=== PATIENT | male | born 1960 | race Two or more races ===

== ENCOUNTER 2023-09-03 12:08 | Emergency (ER) | payer OTHER ==
[~2023-09-03] VITALS: Ht 185.4 cm; Wt 119.7 kg
[2023-09-03 14:08] LABS: HEMATOCRIT 46.2 % (39.0-48.0); HEMOGLOBIN 15.6 g/dL (13-16.00); MEAN CELL VOLUME 87.5 fL (80.0-100.00); MEAN CORPUSCULAR HEMOGLOBIN 29.4 pg (27.00-32.0); MEAN CORPUSCULAR HGB CONC 33.6 g/dl (32.0-36.0); PLATELET COUNT 204 K/uL (150-450); RED BLOOD COUNT 5.28 M/uL (4.00-6.00); RED CELL DISTRIBUTION WIDTH 15.1 % (11.5-14.5)
[2023-09-03 14:25] LABS: ABG PH 7.394 (7.35-7.45); ABG PO2 89.2 mmHg (80-100); ABG pCO2 37.6 mmHg (35-45); BICARBONATE 22.4 mmol/l (23-25); SaO2 96.7 %; Tco2 23.6 mmol/l
[2023-09-03 14:26] LABS: allen test SATISFACTORY; o2 21 %; puncture site RADIAL RIGHT
[2023-09-03 14:54] LABS: ALBUMIN 3.8 gm/dL (3.4-5.0); BILIRUBIN TOTAL 3.85 mg/dL (0.3-1.2); CALCIUM 9.5 mg/dL (8.5-10.1); CREATININE SERUM 1.17 mg/dL (0.70-1.30); GFR 62.76; GLOBULINA 3.3 G/DL (2.4-3.5); POTASSIUM 3.94 mEq/L (3.5-5.1); TOTAL PROTEIN 7.1 gm/dL (6.4-8.2)
[2023-09-03] MEDS ORDERED: KETOROLAC TROMETHAMINE 15 MG VIAL IV ONE (15:15)
[2023-09-03] MEDS ORDERED: HYOSCYAMINE SULFATE 0.125 MG TAB.SUBL SL ONE (15:15)
== END 2023-09-03 22:22 | disposition home or self-care (01) ==
LOC: ER 12:09
PROVIDERS: General Practice
DX: K80.20 Calculus of gallbladder without cholecystitis without obstruction (principal); R10.11 Right upper quadrant pain; Z20.822 Contact with and (suspected) exposure to COVID-19

== ENCOUNTER 2023-09-08 10:26 | Inpatient (IN) | payer OTHER ==
[~2023-09-08] VITALS: Ht 185.4 cm; Wt 118.8 kg
--- NOTE | 2023-09-08 10:31 | NUR ---
PACIENTE ALERTA Y ORIENTADO X 3. REFIERE DOLOR EN COSTADO DERECHO DESDE VICTORIA. INDICA EL SABADO SE ATENDIO LE REALIZARON SONO Y LE INDICARON TENER PIEDRAS.
[2023-09-08] MEDS ORDERED: FAMOTIDINE/PF 20 MG in 0.9 % SODIUM CHLORIDE 8 ML IV PUSH STA (10:39)
[2023-09-08] MEDS ORDERED: FAMOtidine 200mg/20ml VIAL ONE (10:43)
--- NOTE | 2023-09-08 10:45 | NUR ---
GARIMA EUBANKS ORIENTA PTE SOBRE TX, REFIERE ENTENDER Y ACEPTAR. LE RK MUESTRAS DE LABORATORIO Y LE ADMINISTRA MEDICAMENTO MAILE ORDEN MEDICA Y BAJO MEDIDAS ASEPTICAS.
[2023-09-08 11:29] LABS: HEMATOCRIT 42.1 % (39.0-48.0); HEMOGLOBIN 14.7 g/dL (13-16.00); MEAN CELL VOLUME 87.6 fL (80.0-100.00); MEAN CORPUSCULAR HEMOGLOBIN 30.5 pg (27.00-32.0); MEAN CORPUSCULAR HGB CONC 34.9 g/dl (32.0-36.0); PLATELET COUNT 211 K/uL (150-450); RED BLOOD COUNT 4.81 M/uL (4.00-6.00); RED CELL DISTRIBUTION WIDTH 14.9 % (11.5-14.5)
[2023-09-08 11:31] LABS: AMYLASE 1211 U/L (25-115); LIPASE 2897 U/L (13-75)
[2023-09-08] MEDS ORDERED: 0.9 % SODIUM CHLORIDE 1,000 ML IV SCH ×2 (12:11→18:30)
[2023-09-08] MEDS ORDERED: PIPERACILLIN/TAZOBACTAM SODIUM 3.375 GM VIAL IV ONE ×3 (12:15→22:15)
[2023-09-08] MEDS ORDERED: ACETAMINOPHEN 500 MG GEL..CAP PO PRN ×2 (18:15→21:15)
[2023-09-08 20:42] LABS: INR 1.14; PROTHROMBIN TIME 11.9 SECONDS (9.0-11.5)
[2023-09-08 20:46] LABS: C-REACTIVE PROTEIN 2.98 MG/DL (0.00-0.29); MAGNESIUM 2.4 mg/dL (1.8-2.4)
[2023-09-08 20:48] LABS: ALBUMIN 3.7 gm/dL (3.4-5.0); BILIRUBIN TOTAL 2.87 mg/dL (0.3-1.2); BILIRUBIN,CONJUGATED 1.96 mg/dL (0.0-0.2); BILIRUBIN,UNCONJUGATED 0.91 mg/dL (0.0-0.6); CALCIUM 9.6 mg/dL (8.5-10.1); CREATININE SERUM 1.16 mg/dL (0.70-1.30); GFR 63.38; POTASSIUM 3.72 mEq/L (3.5-5.1); TOTAL PROTEIN 7.7 gm/dL (6.4-8.2)
[2023-09-08] MEDS ORDERED: ONDANSETRON HCL 4 MG in 0.9 % SODIUM CHLORIDE 50 ML IV PRN (21:15)
[2023-09-08 22:01] LABS: URINE APPEARANCE Clear; URINE BILIRRUBIN Moderate (NEGATIVE); URINE BLOOD Negative; URINE COLOR Dark Yellow; URINE GLUCOSE Negative (NEGATIVE); URINE LEUKOCYTE Negative; URINE NITRATE Negative; URINE PROTEIN Trace (NEGATIVE)
[2023-09-08 22:05] LABS: URINE RBC 5.1 uL (0.0-20.8); URINE WBC 2.7 uL (0.0-23.2)
[2023-09-08 22:11] LABS: URINE BACTERIA 0 uL (0.0-1933); URINE EPITHELIAL CELLS 1.3 uL (0.0-38.8)
[2023-09-08] MEDS ORDERED: ENALAPRIL MALEATE 2.5 MG TABLET PO STA (23:13)
[2023-09-08] MEDS ORDERED: ENALAPRILAT DIHYDRATE 1.25 MG/ML VIAL IV ONE (23:16)
[2023-09-08] MEDS ORDERED: ENALAPRILAT DIHYDRATE 2.5 MG/2 ML VIAL IV STA (23:21)
[2023-09-09] MEDS ORDERED: PIPERACILLIN/TAZOBACTAM SODIUM 3.375 GM in 0.9 % SODIUM CHLORIDE 100 ML IV SCH
[2023-09-09] MEDS ORDERED: FAMOTIDINE/PF 20 MG in 0.9 % SODIUM CHLORIDE 8 ML IV PUSH SCH (09:00)
[2023-09-09] MEDS ORDERED: ENOXAPARIN SODIUM 40 MG/0.4 ML SYRINGE SUBCUTANEO SCH (09:00)
[2023-09-10 08:34] LABS: ALBUMIN 3.1 gm/dL (3.4-5.0); BILIRUBIN TOTAL 0.99 mg/dL (0.3-1.2); CALCIUM 8.8 mg/dL (8.5-10.1); CREATININE SERUM 0.91 mg/dL (0.70-1.30); GFR 83.88; POTASSIUM 3.77 mEq/L (3.5-5.1); TOTAL PROTEIN 6.1 gm/dL (6.4-8.2)
[2023-09-11] MEDS ORDERED: FAMOTIDINE/PF 20 MG/2 ML VIAL ONE (08:35)
[2023-09-12 06:57] LABS: ALBUMIN 3.1 gm/dL (3.4-5.0); BILIRUBIN TOTAL 0.78 mg/dL (0.3-1.2); CALCIUM 8.8 mg/dL (8.5-10.1); CREATININE SERUM 0.94 mg/dL (0.70-1.30); GFR 80.79; GLOBULINA 2.9 G/DL (2.4-3.5); POTASSIUM 3.69 mEq/L (3.5-5.1)
[2023-09-12] MEDS ORDERED: FAMOTIDINE/PF 20 MG/2 ML VIAL ONE ×2 (08:52→19:47)
[2023-09-12] MEDS ORDERED: FAMOTIDINE/PF 20 MG in 0.9 % SODIUM CHLORIDE 8 ML IV PUSH SCH (21:00)
[2023-09-13] MEDS ORDERED: FAMOTIDINE/PF 20 MG/2 ML VIAL ONE ×3 (08:05→22:05)
[2023-09-13 08:49] LABS: HEMATOCRIT 39.1 % (39.0-48.0); HEMOGLOBIN 13.4 g/dL (13-16.00); MEAN CELL VOLUME 87.1 fL (80.0-100.00); MEAN CORPUSCULAR HEMOGLOBIN 29.8 pg (27.00-32.0); MEAN CORPUSCULAR HGB CONC 34.3 g/dl (32.0-36.0); PLATELET COUNT 213 K/uL (150-450); RED BLOOD COUNT 4.49 M/uL (4.00-6.00); RED CELL DISTRIBUTION WIDTH 14.3 % (11.5-14.5)
[2023-09-13] MEDS ORDERED: ENALAPRILAT DIHYDRATE 1.25 MG/ML VIAL IV PRN (16:15)
[2023-09-13] MEDS ORDERED: CEFAZOLIN SODIUM 1,000 MG VIAL ONE (19:44)
[2023-09-13] MEDS ORDERED: BUPIVACAINE HCL/MPF 0.5% 30ML VIAL ONE (19:44)
[2023-09-13] MEDS ORDERED: PIPERACILLIN/TAZOBACTAM SODIUM 3.375 GM VIAL IV SCH (20:03)
[2023-09-13] MEDS ORDERED: KETOROLAC TROMETHAMINE 30 MG VIAL IV PRN (20:15)
[2023-09-13] MEDS ORDERED: SUGAMMADEX SODIUM 200 MG/2 ML VIAL IV ONE (20:41)
[2023-09-13] MEDS ORDERED: PIPERACILLIN/TAZOBACTAM SODIUM 3.375 GM VIAL IV ONE (20:47)
[2023-09-13] MEDS ORDERED: ENALAPRILAT DIHYDRATE 1.25 MG/ML VIAL IV ONE (23:16)
[2023-09-14] MEDS ORDERED: PIPERACILLIN/TAZOBACTAM SODIUM 3.375 GM VIAL IV ONE (00:16)
[2023-09-14 09:10] LABS: HEMATOCRIT 38.7 % (39.0-48.0); HEMOGLOBIN 13.2 g/dL (13-16.00); MEAN CELL VOLUME 86.5 fL (80.0-100.00); MEAN CORPUSCULAR HEMOGLOBIN 29.4 pg (27.00-32.0); PLATELET COUNT 208 K/uL (150-450); RED BLOOD COUNT 4.48 M/uL (4.00-6.00); RED CELL DISTRIBUTION WIDTH 14.4 % (11.5-14.5)
[2023-09-14 10:11] LABS: ALBUMIN 3.2 gm/dL (3.4-5.0); BILIRUBIN TOTAL 0.83 mg/dL (0.3-1.2); CALCIUM 9.1 mg/dL (8.5-10.1); CREATININE SERUM 1.25 mg/dL (0.70-1.30); GFR 58.15; POTASSIUM 3.84 mEq/L (3.5-5.1); TOTAL PROTEIN 6.2 gm/dL (6.4-8.2)
== END 2023-09-14 17:45 | disposition home or self-care (01) | DRG 417 ==
LOC: ER 10:27 → MEDJ 18:18
PROVIDERS: Emergency Medicine; General Practice; Surgery; ADMIT Internal Medicine; ATTEND Internal Medicine
PROC: 0WUF4JZ Supplement Abdominal Wall with Synthetic Substitute, Percutaneous Endoscopic Approach (ICD-10-PCS; 2023-09-13)
PROC: 0FT44ZZ Resection of Gallbladder, Percutaneous Endoscopic Approach (ICD-10-PCS; principal; 2023-09-13 19:45)
DX: K80.50 Calculus of bile duct without cholangitis or cholecystitis without obstruction (principal); K85.10 Biliary acute pancreatitis without necrosis or infection; K80.20 Calculus of gallbladder without cholecystitis without obstruction